=== PATIENT | female | born 1980 | race Asian ===

== ENCOUNTER 2024-10-08 09:00 | Inpatient (IN) | payer OTHER ==
[2024-10-08 11:28] LABS: ABSOLUTE IMMATURE GRANULOCYTES 0.06 x10^3/uL (0.0-0.031); BASOPHILS # 0.03 x10^3/uL (0.01-0.08); EOSINOPHIL % 0.8 % (0.7-5.8); EOSINOPHILS # 0.07 x10^3/uL (0.04-0.36); HEMATOCRIT 34.6 % (34.1-44.9); HEMOGLOBIN 11.1 g/dL (11.2-15.7); MCHC 32.1 g/dl (32.2-35.5); MEAN CELL VOLUME 82.2 fl (79.4-94.8); MONOCYTE # 0.44 x10^3/uL (0.24-0.86); MONOCYTE % 4.8 % (4.7-12.5); PLATELET COUNT 354 x10^3/uL (182-369); RDW 14.6 % (12.2-17.1)
[2024-10-08 11:36] LABS: INR 0.99 (0.83-1.09); PROTHROMBIN TIME (PATIENT) 10.8 SEC (9.7-13.0)
[2024-10-08 11:39] LABS: ACTIVATED PTT 26.1 SECONDS (25.2-36.5)
[2024-10-08] MEDS: ELECTROLYTE-148 SOLN 1,000 ML IV SCH (11:45)
[2024-10-08] MEDS ORDERED: AMPICILLIN SODIUM 2 GM VIAL ONE (11:56)
[2024-10-08] MEDS: AMPICILLIN - 2 GM in SODIUM CHLORIDE 100 ML IVPB ONE (12:00)
[2024-10-08 12:10] VITALS: BMI 36.0
[2024-10-08 12:10] LABS: CALCIUM 9.2 mg/dL (8.5-10.1)
[2024-10-08 12:14] LABS: CREATININE 0.4 mg/dL (0.55-1.3)
[2024-10-08] MEDS ORDERED: FENTANYL/BUPIVACAINE/NS/PF - PCEA - 50 ML DISP.SYRIN EP ONE ×2 (12:44→16:42)
[2024-10-08] MEDS: FENTANYL/BUPIVACAINE/NS/PF - PCEA - 50 ML DISP.SYRIN EP SCH (13:15)
[2024-10-08] MEDS ORDERED: NALOXONE HCL 0.4 MG/ML VIAL IVPUSH PRN (13:30)
[2024-10-08] MEDS: OXYTOCIN 30 UNITS in 0.9% NS 30 UNIT/500 ML INFUS.BAG IVPB SCH (13:35)
[2024-10-08 13:53] LABS: SYPHILIS W/ RPR CONF NON-REACTIVE (NONREACTIVE)
[2024-10-08 13:58] VITALS: RESP 18
[2024-10-08 14:21] LABS: HIV INTERPRETATION NEGATIVE (NEGATIVE)
[2024-10-08 14:22] LABS: HCV DIAGNOSTIC IN-HOUSE W/RFLX NON-REACTIVE (NONREACTIVE)
[2024-10-08] MEDS ORDERED: AMPICILLIN SODIUM 1 GM VIAL ONE (16:07)
[2024-10-08] MEDS: AMPICILLIN - 1 GM in SODIUM CHLORIDE 100 ML IVPB SCH (16:10)
[2024-10-08] MEDS ORDERED: OXYTOCIN 20 UNITS in 0.9% NS 20 UNIT/1,000 ML INFUS.BAG IV ONE (17:01)
[2024-10-08] MEDS ORDERED: BISACODYL 10 MG SUPP.RECT RC PRN (17:14)
[2024-10-08] MEDS ORDERED: WITCH HAZEL 50% (TUCKS) 40 PAD/JAR PAD TP PRN (17:14)
[2024-10-08] MEDS ORDERED: oxyCODONE HCL 5 MG TABLET PO PRN (17:14)
[2024-10-08] MEDS ORDERED: METHYLERGONOVINE MALEATE 0.2 MG/1 ML AMP IM PRN (17:14)
[2024-10-08] MEDS ORDERED: BENZOCAINE 28 GM HEMORRHOIDAL OINTMENT TP PRN (17:14)
[2024-10-08] MEDS ORDERED: BENZOCAINE 20% 57 GM BOTTLE TP PRN (17:14)
[2024-10-08] MEDS: OXYTOCIN 20 UNITS in 0.9% NS 20 UNIT/1,000 ML INFUS.BAG IV SCH (17:38)
[2024-10-08] MEDS ORDERED: IBUPROFEN 600 MG TABLET (FP) PO ONE (17:58)
[2024-10-08] MEDS: IBUPROFEN 600 MG TABLET (FP) PO PRN (18:00)
[2024-10-08 18:25] LABS: CORD BASE EXCESS -4.6 mmol/L (0-2); CORD HCO3 23.2 mmHg (20-29); CORD PCO2 52.8 mmHg (30-78); CORD pH 7.261 (7.14-7.44)
[2024-10-08 18:26] LABS: CORD BASE EXCESS -4.9 mmol/L (0-2); CORD PCO2 37.3 mmHg (30-78); CORD pH 7.348 (7.14-7.44)
[2024-10-08] MEDS: LACTATED RINGERS SOLUTION 1,000 ML IV SCH (20:50)
[2024-10-09] MEDS: FERROUS SO4 325 MG TABLET (FP) PO SCH (06:54)
[2024-10-09 08:10] LABS: ABSOLUTE IMMATURE GRANULOCYTES 0.06 x10^3/uL (0.0-0.031); BASOPHILS # 0.04 x10^3/uL (0.01-0.08); EOSINOPHIL % 1.6 % (0.7-5.8); EOSINOPHILS # 0.15 x10^3/uL (0.04-0.36); HEMATOCRIT 32.9 % (34.1-44.9); HEMOGLOBIN 10.3 g/dL (11.2-15.7); MCHC 31.3 g/dl (32.2-35.5); MEAN CELL VOLUME 83.1 fl (79.4-94.8); MEAN PLT VOLUME 8.9 fl (9.4-12.3); MONOCYTE % 5.4 % (4.7-12.5); PLATELET COUNT 314 x10^3/uL (182-369); RDW 14.6 % (12.2-17.1)
[2024-10-09] MEDS: PRENATAL VITAMINS W/ FOLIC ACID TABLET (FP) PO SCH (10:29)
[2024-10-09] MEDS: ACETAMINOPHEN 325 MG TABLET (FP) PO PRN (12:13)
[2024-10-09] MEDS ORDERED: SENNOSIDES/DOCUSATE COMBO (SENNA PLUS) TABLET (UD) PO PRN (22:00)
[2024-10-10 08:23] VITALS: BP 107/58; PULSE 78; TEMP 97.8
== END 2024-10-10 11:55 | disposition home or self-care (01) | DRG 560 ==
LOC: JLDR 09:00 → J3W 21:25
PROVIDERS: ADMIT Obstetrics & Gynecology; ATTEND Obstetrics & Gynecology
PROC: 10E0XZZ Delivery of Products of Conception, External Approach (ICD-10-PCS; principal; 2024-10-08)
PROC: 0HQ9XZZ Repair Perineum Skin, External Approach (ICD-10-PCS; 2024-10-08)
PROC: 0W8NXZZ Division of Female Perineum, External Approach (ICD-10-PCS; 2024-10-08)
DX: O24.424 Gestational diabetes mellitus in childbirth, insulin controlled (principal); O99.214 Obesity complicating childbirth; O70.0 First degree perineal laceration during delivery; Z3A.38 38 weeks gestation of pregnancy; Z37.0 Single live birth
CPT/HCPCS: 36415; 36600; 59409; 80048; 82803; 82962; 85025; 85610; 85730; 86780; 86803; 86850; 86900; 86901; 87340; 87389